=== PATIENT | female | born 1935 | race Caucasian/White ===

== ENCOUNTER → 2020-11-14 06:30 | Outpatient (REF) | payer MEDICARE, SELFPAY | LOC: OLS.ACH 06:30 | PROVIDERS: PCP Family Medicine; Visit Provider Family Medicine | DX: Z03.818 Encounter for observation for suspected exposure to other biological agents ruled out (principal); S72.144D Nondisplaced intertrochanteric fracture of right femur, subsequent encounter for closed fracture with routine healing | CPT/HCPCS: 87635; U0005; U0003 ==